=== PATIENT | female | born 1945 | race Caucasian/White ===

== ENCOUNTER 2018-01-10 14:26 | Outpatient (CLI) | payer MEDICARE | END 2018-01-10 14:27 | disposition home or self-care (01) | LOC: CP 14:26 | PROVIDERS: ATTEND Family Medicine | DX: R06.02 Shortness of breath (principal); Z87.898 Personal history of other specified conditions | CPT/HCPCS: 94060; 94727 ==

== ENCOUNTER 2018-03-23 09:01 | Outpatient (CLI) | payer MEDICARE | END 2018-03-23 09:02 | disposition home or self-care (01) | LOC: BICMAMMO 09:01 | PROVIDERS: ATTEND Family Medicine | DX: Z12.31 Encounter for screening mammogram for malignant neoplasm of breast (principal) | CPT/HCPCS: 77063; 77067 ==

== ENCOUNTER 2019-03-27 09:41 | Outpatient (CLI) | payer MEDICARE ==
--- NOTE | 2019-03-27 11:06 | MMO ---
Bilateral MAMMO Bilat Screen [facility]. CLINICAL HISTORY: Patient is 73 years old and is seen for screening. The patient has no family history of breast cancer. The patient has no personal history of cancer. The patient has a history of left Ultrasound Guided Core Biopsy in July, - benign. VIEWS: The views performed were: bilateral craniocaudal with tomosynthesis and bilateral mediolateral oblique with tomosynthesis. FILMS COMPARED: The present examination has been compared to prior imaging studies performed at [facility] on 03/18/2015, 03/21/2016, 03/22/2017 and 03/23/2018. MAMMOGRAM FINDINGS: The breasts are heterogeneously dense, which could obscure a lesion on mammography. There is a stable biopsy clip seen in the left breast. There are no suspicious masses, suspicious calcifications, or new areas of architectural distortion. IMPRESSION: THERE IS NO MAMMOGRAPHIC EVIDENCE OF MALIGNANCY. A ROUTINE FOLLOW-UP MAMMOGRAM IN 1 YEAR IS RECOMMENDED. THE RESULTS OF THIS EXAM WERE SENT TO THE PATIENT. ACR BI-RADS Category 2 - Benign finding MAMMOGRAPHY NOTE: 1. A negative mammogram report should not delay a biopsy if a dominant of clinically suspicious mass is present. 2. Approximately 10% to 15% of breast cancers are not detected by mammography. 3. Adenosis and dense breasts may obscure an underlying neoplasm. Reported by: HUNG BOWLING MD Electonically Signed: [id number]
== END 2019-03-27 09:42 | disposition home or self-care (01) ==
LOC: BICMAMMO 09:41
PROVIDERS: ATTEND Family Medicine
DX: Z12.31 Encounter for screening mammogram for malignant neoplasm of breast (principal); Z91.89 Other specified personal risk factors, not elsewhere classified
CPT/HCPCS: 77063; 77067

== ENCOUNTER 2021-04-05 09:45 | Outpatient (CLI) | payer MEDICARE | END 2021-04-05 09:46 | disposition home or self-care (01) | LOC: BICMAMMO 09:45 | PROVIDERS: ATTEND Family Medicine | DX: Z12.31 Encounter for screening mammogram for malignant neoplasm of breast (principal); Z91.89 Other specified personal risk factors, not elsewhere classified | CPT/HCPCS: 77063; 77067 ==

== ENCOUNTER 2022-02-10 09:34 | Outpatient (CLI) | payer MEDICARE ==
[2022-02-10] MEDS ORDERED: Magnevist 469MG/ML 20 ML VIAL ONE (11:40)
== END 2022-02-10 09:35 | disposition home or self-care (01) ==
LOC: ULT 09:34 → BICMRI 09:35
PROVIDERS: ATTEND Family Medicine
DX: I63.9 Cerebral infarction, unspecified (principal)
CPT/HCPCS: 70553; 82565; 93880; A9579

== ENCOUNTER 2022-04-08 10:02 | Outpatient (CLI) | payer MEDICARE | END 2022-04-08 10:03 | disposition home or self-care (01) | LOC: BICMAMMO 10:02 | PROVIDERS: ATTEND Family Medicine | DX: Z12.31 Encounter for screening mammogram for malignant neoplasm of breast (principal); Z13.820 Encounter for screening for osteoporosis; M85.89 Other specified disorders of bone density and structure, multiple sites; Z91.89 Other specified personal risk factors, not elsewhere classified | CPT/HCPCS: 77063; 77067; 77080 ==

== ENCOUNTER 2022-11-09 13:30 | Inpatient (IN) | payer MEDICARE ==
[2022-11-16] MEDS ORDERED: Iopamidol 370 76% 100 ML VIAL ONE (12:31)
[2022-11-16] MEDS ORDERED: CEFAZOLIN 1 GM VIAL ONE (12:47)
[2022-11-16] MEDS ORDERED: Protamine Sulfate 50 MG/5 ML VIAL ONE (12:47)
[2022-11-16] MEDS ORDERED: Dexamethasone 20 MG/5 ML VIAL ONE (13:13)
[2022-11-16] MEDS ORDERED: Ondansetron PF 4 MG/2 ML Vial ONE (13:13)
[2022-11-16] MEDS ORDERED: PROPOFOL 200 MG/20 ML VIAL ONE (13:13)
[2022-11-16] MEDS ORDERED: Lidocaine 1% PF 5 ML VIAL ONE (13:13)
[2022-11-16] MEDS ORDERED: Rocuronium Bromide 10 MG/ML (10ML VIAL) ONE (13:13)
[2022-11-16] MEDS ORDERED: fentaNYL 50 mcg/mL 1 mL Vial ONE ×2 (13:15→16:47)
[2022-11-16] MEDS ORDERED: Midazolam HCl 2 mg/2 ml Vial ONE (13:15)
[2022-11-16] MEDS ORDERED: Non-Formulary Medication 1 EACH PO PRN (17:49)
[2022-11-16] MEDS ORDERED: Ondansetron HCl/PF 4 MG/2 ML Vial IVP PRN (17:50)
[2022-11-16] MEDS ORDERED: Promethazine HCl 25 MG/ML VIAL IM/IV PRN (17:50)
[2022-11-16 20:06] VITALS: BMI 22.2
[2022-11-16] MEDS ORDERED: Apixaban 2.5 MG TAB PO SCH (23:00)
[2022-11-16] MEDS ORDERED: Zolpidem Tartrate 5 MG TAB PO SCH (23:00)
[2022-11-17] MEDS ORDERED: Valsartan 80 MG TAB PO SCH (09:00)
[2022-11-17] MEDS ORDERED: Rosuvastatin 20 MG TAB PO SCH (09:00)
[2022-11-17] MEDS ORDERED: Primidone 50 MG TAB PO SCH (09:00)
[2022-11-17] MEDS ORDERED: cycloSPORINE 0.05% Ophthalmic Droperette EA EYE SCH (09:00)
[2022-11-17] MEDS ORDERED: Estradiol 1 MG TAB PO SCH (09:00)
[2022-11-17] MEDS ORDERED: Apixaban 2.5 MG TAB PO SCH ×2 (09:00→21:00)
[2022-11-17 11:37] VITALS: BP 158/79; TEMP 97.3
[2022-11-17] MEDS ORDERED: Zolpidem Tartrate 5 MG TAB PO SCH (21:00)
== END 2022-11-17 12:16 | disposition home or self-care (01) | DRG 229 ==
LOC: SURG A 11-16 09:50 → 2NO 11-16 19:11
PROVIDERS: ADMIT Internal Medicine Cardiovascular Disease; ATTEND Internal Medicine Cardiovascular Disease
PROC: 02H73DZ Insertion of Intraluminal Device into Left Atrium, Percutaneous Approach (ICD-10-PCS; principal; 2022-11-16)
PROC: 02PA3DZ Removal of Intraluminal Device from Heart, Percutaneous Approach (ICD-10-PCS; 2022-11-16)
PROC: B24BZZ4 Ultrasonography of Heart with Aorta, Transesophageal (ICD-10-PCS; 2022-11-16)
DX: I48.19 Other persistent atrial fibrillation (principal); Z79.899 Other long term (current) drug therapy
CPT/HCPCS: 33340; 36415; 85347; 86850; 86900; 86901; 93306; 93312; C1759; C1760; C1894; J0690; J1100; J2250; J2405; J2704; J2720; J3010; Q9967

== ENCOUNTER 2022-11-09 13:39 | Outpatient (CLI) | payer MEDICARE ==
[2022-11-09 14:30] LABS: Bilirubin Neg (Negative); Blood, Urine 10 (Negative); Clarity Slightly Cloudy (Clear); Glucose, Urine (Dipstick) Normal (Negative); Ketone, Urine Negative (Negative); Leukocyte 25 (Negative); Nitrite Negative (Negative); Protein, Urine (Dipstick) 15 mg/dl (Neg-Trace); Specific Gravity, Urine 1.015 (1.005-1.030); Urobilinogen Normal mg/dL (Less than 2)
[2022-11-09 14:33] LABS: Hemoglobin 12.2 g/dL (12.0-15.5); Mean Corpuscular HGB CONC 32.4 g/dL (32.0-36.0); Mean Corpuscular Hemoglobin 30.2 pg (27.0-33.0); Mean Corpuscular Volume 93.3 fl (81.6-98.3); Mean Platelet Volume 11.8 fl (7.4-10.4); Platelet Count 196 10x3/uL (150-450); RBC Distribution Width 12.9 % (11.5-14.5); Red Blood Cell (RBC) Count 4.04 10x6/uL (3.90-5.03); White Blood Cell (WBC) Count 7.1 10x3/uL (3.5-10.5)
[2022-11-09 14:39] LABS: Bacteria/HPF Rare-Few HPF (None Seen); RBC/HPF 0-3 HPF (0-3)
[2022-11-09 14:40] LABS: Mucous/LPF 1+ LPF (<2+)
[2022-11-09 14:42] LABS: INR-International Normal Ratio 1.1; Prothrombin Time 11.8 sec (9.5-12.1)
[2022-11-09 14:47] LABS: ALT (SGPT) 30 U/L (8-55); AST (SGOT) 21 U/L (5-34); Alkaline Phosphatase 51 U/L (40-110); Anion Gap 12 mmol/L (10-20); BUN (Urea Nitrogen) 18 mg/dL (9.8-20.1); Bilirubin, Total 0.4 mg/dL (0.2-1.2); Calc. Creatinine Clearance 0 mL/min (70-130); Calcium 9.2 mg/dL (7.8-10.44); Carbon Dioxide 26 mmol/L (23-31); Chloride 101 mmol/L (98-107); Estimated GFR 60; Glucose 97 mg/dL (83-110); Potassium 4.8 mmol/L (3.5-5.1); Sodium 134 mmol/L (136-145)
== END 2022-11-09 13:40 | disposition home or self-care (01) ==
LOC: LABBT 13:39
PROVIDERS: ATTEND Internal Medicine Cardiovascular Disease
DX: Z01.818 Encounter for other preprocedural examination (principal); I48.19 Other persistent atrial fibrillation
CPT/HCPCS: 80053; 81001; 85027; 85610; 85730; 93005; 93010